=== PATIENT | female | born 1965 | race Caucasian/White ===

== ENCOUNTER 2018-11-07 17:14 | Emergency (ER) | payer OTHER ==
--- NOTE | 2018-11-07 19:03 | EDPHY ---
H & P Time Seen by Provider: 11/07/18 18:37 HPI/ROS: CHIEF COMPLAINT: Syncope HISTORY OF PRESENT ILLNESS: Patient says that she has had multiple episodes of syncope since she was in 4th grade. She says she has probably fainted at least 30 times since then. She had lunch in [place] and developed epigastric discomfort afterwards. Between [facility] and [place] [employer] she developed nausea and vomiting and increasing pain and she felt like she just had a lot of coffee. She felt like she needed to have a bowel movement and then felt hot and sweaty, passed out in the car around 4:00 p.m. For about 10 sec. She did not have chest pain shortness of breath or headache. She did not have seizure activity. Currently she feels relatively asymptomatic. Her epigastric discomfort is essentially gone. REVIEW OF SYSTEMS: Eye: no change in vision ENT: no sore throat Cardiac: No chest pain Pulmonary: no cough or SOB Abdomen: HPI Musculoskeletal: She has been having foot pain and taking Advil more than usual. She had some Sunday with wine and had similar symptoms as today. Skin: no rash Neuro: no headache Constitutional: no fever : no urinary symptoms A comprehensive 10 point review of systems is otherwise negative aside from elements mentioned in the history of present illness. PAST MEDICAL HISTORY: negative except for multiple episodes of syncope Social history: Lives in [facility], arrived here this past Sunday. General Appearance: Alert and conversant, cooperative. Eyes: No scleral icterus. ENT, Mouth: Normal mucous membranes. Respiratory: Normal respiratory effort, breath sounds equal, lungs are clear to auscultation. Cardiovascular: Regular rate and rhythm. No murmur. Gastrointestinal: Abdomen is soft and non tender. Negative Dong sign. No McBurney's point tenderness. No rebound or guarding. Normal bowel sounds. Neurological: Alert, face symmetric, normal motor and sensory in extremities. Skin: Warm and dry, no rashes. Musculoskeletal: No peripheral edema. Psychiatric: Not agitated. Emergency Department course/MDM: Patient presents with epigastric discomfort that is likely due to reflux or stomach acid. She is less likely to have gallstones with no right upper quadrant tenderness, less likely to have pancreatitis or bowel obstruction. I considered pulmonary embolism and appendicitis and ACS as well. Her EKG is sinus rhythm. I think the most likely explanation is she developed epigastric discomfort and then had vasovagal syncope. I think malignant dysrhythmia would be unlikely. We discussed discharge with empiric H2 teja or PPI and the patient says she is comfortable with that. She agrees with not doing any further diagnostics at this time given resolution of her symptoms. Smoking Status: Never smoked Constitutional: Initial Vital Signs Temperature (C) 36.4 C 11/07/18 17:21 Heart Rate 74 11/07/18 17:21 Respiratory Rate 16 11/07/18 17:21 Blood Pressure 156/101 H 11/07/18 17:21 O2 Sat (%) 98 11/07/18 17:21 O2 Delivery Mode Room Air Allergies/Adverse Reactions: No Known Allergies Allergy (Unverified 11/07/18 17:21) Home Medications: Medication Instructions Recorded Estrogens, Conjugated 11/07/18 Progesterone 11/07/18 Departure - Departure Disposition: Home, Routine, Self-Care Clinical Impression: Vasovagal syncope, Abdominal pain Condition: Good Instructions: Syncope (ED), Gastroesophageal Reflux Disease (ED), Acute Abdominal Pain (ED) Additional Instructions: Decrease intake of caffeine or Advil or alcohol over the next week. You can use [id number] antacids such as Maalox or Mylanta, or something more the such as Pepcid or Zantac or Prilosec. Referrals: NONE *PRIMARY CARE P,. [Primary Care Provider] - As per Instructions Federico Durand MD [Medical Doctor] - As per Instructions
[2018-11-07 19:17] VITALS: BP 148/89
--- NOTE | 2018-11-07 20:43 | CPEKG ---
Test Reason : OPEN Blood Pressure : / mmHG Vent. Rate : 072 BPM Atrial Rate : 073 BPM P-R Int : 202 ms QRS Dur : 095 ms QT Int : 380 ms P-R-T Axes : 039 055 016 degrees QTc Int : 416 ms Sinus rhythm Borderline prolonged SC interval Probable left atrial enlargement Confirmed by Guy Wolfe ([id number]) on 11/07/2018 8:42:51 PM Referred By: GUY WOLFE Confirmed By:Guy Wolfe
== END 2018-11-07 19:17 | disposition home or self-care (01) ==
DX: R10.13 Epigastric pain (principal); R55 Syncope and collapse